=== PATIENT | female | born 1995 | race Caucasian/White ===

== ENCOUNTER 2023-11-28 08:00 | Outpatient (CLI) | payer OTHER | END 2023-11-28 23:59 | disposition home or self-care (01) | LOC: LAB.N 08:00 | PROVIDERS: ATTEND Physician Assistant Medical | DX: N39.0 Urinary tract infection, site not specified (principal) | CPT/HCPCS: 87086; 87181 ==

== ENCOUNTER 2024-02-28 08:00 | Outpatient (CLI) | payer OTHER ==
[2024-02-28 18:13] LABS: BILIRUBIN,URINE NEGATIVE (NEGATIVE); GLUCOSE, URINE (UA) NEGATIVE (NEGATIVE); KETONES,URINE (UA) NEGATIVE (NEGATIVE); LEUKOCYTE ESTERASE, URINE NEGATIVE (NEGATIVE); NITRITE,URINE NEGATIVE (NEGATIVE); OCCULT BLOOD,URINE SMALL (NEGATIVE); PROTEIN,URINE TRACE mg/dL (NEGATIVE); UROBILINOGEN,URINE 0.2 (NORMAL) E.U./dL (NORMAL)
[2024-02-28 18:25] LABS: CLARITY,URINE CLEAR (CLEAR)
[2024-02-28 18:26] LABS: BACTERIA,URINE Rare /HPF (None Seen); SQUAMOUS EPITHELIAL CELL,UR FEW Squamous (<= Few)
== END 2024-02-28 23:59 | disposition home or self-care (01) ==
LOC: LAB.WCP 08:00
DX: R30.0 Dysuria (principal)
CPT/HCPCS: 81001; 81003; 87086